=== PATIENT | female | born 1945 | race Caucasian/White ===

== ENCOUNTER → 2016-06-10 | Outpatient (CLI) | payer MEDICARE, MEDICAID ==
[~2016-06-10] MED LIST: LORTAB 2.5/5001 TAB PO; UNABLE
== END ==
LOC: MC.RAD 10:37
DX: Z12.31 Encounter for screening mammogram for malignant neoplasm of breast (principal)

== ENCOUNTER → 2017-08-26 | Outpatient (CLI) | payer MEDICARE, MEDICAID | LOC: MC.RAD 10:09 | DX: Z12.31 Encounter for screening mammogram for malignant neoplasm of breast (principal); N63.20 Unspecified lump in the left breast, unspecified quadrant; E78.5 Hyperlipidemia, unspecified ==

== ENCOUNTER → 2017-09-02 | Outpatient (CLI) | payer MEDICARE, MEDICAID | LOC: MC.RAD 08:20 | DX: N63.20 Unspecified lump in the left breast, unspecified quadrant (principal) ==

== ENCOUNTER → 2017-10-16 | Outpatient (CLI) | payer MEDICARE, MEDICAID | LOC: MC.RAD 09:47 | DX: C50.912 Malignant neoplasm of unspecified site of left female breast (principal) ==

== ENCOUNTER 2017-11-11 08:22 | Day surgery (SDC) | payer MEDICARE, MEDICAID ==
[~2017-11-11] VITALS: Ht 139.7 cm; Wt 61.4 kg
[2017-11-11] MEDS ORDERED: BASAGLAR K100 UNIT/1 SQ (09:27)
[2017-11-11] MEDS ORDERED: ZOLOFT 100MG100 MG PO (09:28)
[2017-11-11] MEDS ORDERED: GLUCOPHAGE500 MG/TAB PO (09:28)
[2017-11-11] MEDS ORDERED: TRADJENTA5 MG PO (09:28)
[2017-11-11 09:31] VITALS: BP 135/51; PULSE 75; TEMP 97.8
[2017-11-11 11:55] LABS: CALCIUM 9.6 mg/dL (8.4-10.2); CREATININE, serum 0.45 mg/dL (0.52-1.25); POTASSIUM 3.7 mmol/L (3.4-5.0)
[2017-11-11 16:10] VITALS: BP 119/66; PULSE 70; TEMP 97.4
[2017-11-11] MEDS ORDERED: NORCO 325 MG-51 TAB PO (16:16)
[2017-11-11 16:25] VITALS: BP 135/75; PULSE 67
[2017-11-11 16:40] VITALS: BP 128/67; PULSE 60
[2017-11-11 16:55] VITALS: BP 153/76; PULSE 66
== END 2017-11-11 17:20 | disposition home or self-care (01) ==
LOC: SDCO 08:22
PROVIDERS: Family Medicine
DX: D05.12 Intraductal carcinoma in situ of left breast (principal); Z17.0 Estrogen receptor positive status [ER+]; E11.9 Type 2 diabetes mellitus without complications; Z79.4 Long term (current) use of insulin; E78.5 Hyperlipidemia, unspecified; I10 Essential (primary) hypertension; K76.0 Fatty (change of) liver, not elsewhere classified; K21.9 Gastro-esophageal reflux disease without esophagitis; Z79.899 Other long term (current) drug therapy; Z80.9 Family history of malignant neoplasm, unspecified
CPT/HCPCS: J0690; J1815; J2704; J3010; J7030

== ENCOUNTER → 2018-04-13 | Outpatient (CLI) | payer MEDICARE, MEDICAID ==
[~2018-04-13] MED LIST changes: +BASAGLAR K100 UNIT/1 SQ; +GLUCOPHAGE500 MG/TAB PO; +NORCO 325 MG-51 TAB PO; +TRADJENTA5 MG PO; +ZOLOFT 100MG100 MG PO
== END ==
LOC: COL.RAD 10:00
DX: M51.26 Other intervertebral disc displacement, lumbar region (principal); M48.04 Spinal stenosis, thoracic region; M47.814 Spondylosis without myelopathy or radiculopathy, thoracic region

== ENCOUNTER → 2018-05-05 | Outpatient (CLI) | payer MEDICARE, MEDICAID | LOC: SUN.DIA 08:32 | DX: E11.9 Type 2 diabetes mellitus without complications (principal); Z79.4 Long term (current) use of insulin; E78.5 Hyperlipidemia, unspecified; I10 Essential (primary) hypertension; E66.9 Obesity, unspecified | CPT/HCPCS: G0108 ==

== ENCOUNTER → 2018-05-14 | Outpatient (CLI) | payer MEDICARE, MEDICAID | LOC: SUN.DIA 10:42 | DX: E11.9 Type 2 diabetes mellitus without complications (principal); Z79.4 Long term (current) use of insulin; E78.5 Hyperlipidemia, unspecified; I10 Essential (primary) hypertension; E66.9 Obesity, unspecified | CPT/HCPCS: G0108 ==

== ENCOUNTER → 2018-06-16 | Outpatient (CLI) | payer MEDICARE, MEDICAID | LOC: SUN.DIA 11:01 | DX: E11.9 Type 2 diabetes mellitus without complications (principal); Z79.4 Long term (current) use of insulin; E78.5 Hyperlipidemia, unspecified; I10 Essential (primary) hypertension; E66.9 Obesity, unspecified | CPT/HCPCS: G0108 ==

== ENCOUNTER → 2018-08-27 | Outpatient (CLI) | payer MEDICARE, MEDICAID | LOC: MC.RAD 09:58 | DX: D05.12 Intraductal carcinoma in situ of left breast (principal); Z98.890 Other specified postprocedural states; Z92.3 Personal history of irradiation; Z98.82 Breast implant status | CPT/HCPCS: G0279 ==

== ENCOUNTER → 2018-12-01 | Outpatient (CLI) | payer MEDICARE, MEDICAID | LOC: SUN.DIA 09-29 14:41 → DIA.ED 09:32 | DX: E11.9 Type 2 diabetes mellitus without complications (principal); E78.5 Hyperlipidemia, unspecified; I10 Essential (primary) hypertension; E66.9 Obesity, unspecified; Z79.4 Long term (current) use of insulin | CPT/HCPCS: G0108 ==

== ENCOUNTER → 2019-03-18 | Outpatient (CLI) | payer MEDICARE, MEDICAID | LOC: COL.RAD 09:24 | DX: E83.52 Hypercalcemia (principal) | CPT/HCPCS: A9503 ==

== ENCOUNTER → 2019-10-19 | Outpatient (CLI) | payer MEDICARE, MEDICAID | LOC: MC.RAD 10:30 | DX: Z12.31 Encounter for screening mammogram for malignant neoplasm of breast (principal); D05.12 Intraductal carcinoma in situ of left breast; Z98.890 Other specified postprocedural states; Z98.82 Breast implant status; Z92.3 Personal history of irradiation ==

== ENCOUNTER → 2020-11-23 | Outpatient (CLI) | payer MEDICARE, MEDICAID | LOC: MC.RAD 10-19 10:00 | DX: Z12.31 Encounter for screening mammogram for malignant neoplasm of breast (principal); E78.5 Hyperlipidemia, unspecified ==